=== PATIENT | female | born 1995 | race Caucasian/White ===

== ENCOUNTER 2025-06-26 13:34 | Oncology outpatient (recurring) (ONCR) | payer BC, MEDICAID, SELFPAY ==
[2025-06-26 14:40] LABS: Hematocrit 33.8 % (36-47); Hemoglobin 11.10 g/dL (11.27-16.99); Mean Corpuscular HGB Conc 32.8 g/dL (30-55); Mean Corpuscular Hemoglobin 26.9 pg (27-33); Mean Corpuscular Volume 81.8 fl (85-98); Nucleated Red Blood Cells % 0 %; Platelet Count 319 10^3/cmm (157-399); Red Blood Count 4.13 10^6/uL (3.85-5.65); White Blood Count 9.93 10^3/uL (3.29-11.43)
[2025-06-26 15:11] LABS: LAB Peripheral Smear Sent for Review
== END 2025-06-26 23:59 | disposition home or self-care (01) ==
LOC: ONCMED 13:34
PROVIDERS: Visit Provider Internal Medicine Medical Oncology
DX: D72.823 Leukemoid reaction (principal); D64.9 Anemia, unspecified
CPT/HCPCS: 36415; 80503; 85025

== ENCOUNTER → 2025-08-21 14:24 | Outpatient (BNVA) | payer BC, MEDICAID, SELFPAY | PROVIDERS: Visit Provider Obstetrics & Gynecology | DX: N85.4 Malposition of uterus (principal) | CPT/HCPCS: 76830 ==

== ENCOUNTER 2025-09-03 15:08 | Outpatient (CLI) | payer BC, MEDICAID, SELFPAY ==
[2025-09-03 16:17] LABS: Estmated Average Glucose 97; Hemoglobin A1C 5.0 % (4.0-6.0)
[2025-09-03 16:29] LABS: Calcium 9.1 mg/dL (8.5-10.5)
== END 2025-09-03 15:09 | disposition home or self-care (01) ==
LOC: LAB 15:08
PROVIDERS: PCP Family Medicine; Visit Provider Obstetrics & Gynecology
DX: N85.8 Other specified noninflammatory disorders of uterus (principal)
CPT/HCPCS: 36415; 82310; 83036; 83970; 86480